=== PATIENT | female | born 1980 | race Caucasian/White ===

== ENCOUNTER 2017-07-17 18:05 | Emergency (ER) | payer MEDICAID ==
[~2017-07-17] VITALS: Ht 162.6 cm; Wt 85.5 kg
[2017-07-17 18:24] VITALS: BP 146/89
[2017-07-17] MEDS ORDERED: ONDANSETRON ODT 4 MG PO ONE (19:00)
[2017-07-17] MEDS ORDERED: KETOROLAC 30 MG/1 ML IM ONE (19:00)
[2017-07-17] MEDS ORDERED: ONDANSETRON ODT 4 MG ONE (19:18)
[2017-07-17] MEDS ORDERED: KETOROLAC 30 MG/1 ML ONE (19:18)
[2017-07-17] MEDS ORDERED: DIAZEPAM 5 MG TABLET ONE (20:17)
[2017-07-17] MEDS ORDERED: DIAZEPAM 5 MG TABLET PO ONE (20:30)
== END 2017-07-17 20:36 | disposition home or self-care (01) ==
LOC: ED 20:26
DX: M25.512 Pain in left shoulder (principal); M62.830 Muscle spasm of back; Z87.891 Personal history of nicotine dependence
CPT/HCPCS: 73030; 96372; 99284; J1885; Q0162